=== PATIENT | male | born 1975 | race Caucasian/White ===

== ENCOUNTER 2020-12-20 08:56 | Emergency (ER) | payer OTHER, SELFPAY ==
[2020-12-20 09:07] VITALS: BP 123/77; PULSE 67; RESP 17; TEMP 36.6; O2SAT 98; BMI 28.3
[2020-12-20 09:50] LABS: Basophils % 0.6 % (0.1-2.0); Eosinophils # 0.2 K/mm3 (0.0-0.4); Eosinophils % 4.7 % (0.1-12.0); Hematocrit 45.3 % (42.0-52.0); Hemoglobin 14.9 g/dL (14.1-18.0); Lymphocytes # 1.4 K/mm3 (0.7-4.5); Lymphocytes % 28.8 % (10-50); Mean Corpuscular HGB Conc 32.9 g/dL (31.8-35.4); Mean Corpuscular Hemoglobin 32.4 pg (27.0-31.2); Mean Corpuscular Volume 98.5 fl (80-94); Monocytes # 0.4 K/mm3 (0.1-1.0); Monocytes % 7.9 % (1.7-9.3); Neutrophils # 2.8 K/mm3 (1.8-7.8); Neutrophils % 58.1 % (37.0-80.0); Platelet Count 231 K/mm3 (142-424); Red Cell Distribution Width 13.7 % (11.5-17.5); White Blood Count 4.8 K/mm3 (4.8-10.8)
[2020-12-20 09:52] LABS: Chloride 104 mmol/L (98-107); Potassium 4.1 mmoL/L (3.5-5.1); Sodium 141 mmol/L (136-145)
[2020-12-20 09:54] LABS: Blood Urea Nitrogen 12 mg/dl (9-20); Creatinine Clearance Estimated 144 mL/min (50-200); Estimated Glomerular Filt Rate 92 ml/min (>60); GFR (African American) 111 ML/MIN (>60)
[2020-12-20 09:55] LABS: Alanine Aminotransferase 30 U/L (12-78); Albumin Level 4.5 g/dl (3.5-5.0); Albumin/Globulin Ratio 1.4 (1.1-1.8); Alkaline Phosphatase 81 U/L (38-126); Anion Gap 14.1 mEq/L (5-15); Aspartate Amino Transferase 33 U/L (17-59); Bilirubin,Total 0.7 mg/dl (0.2-1.3); Calcium 9.1 mg/dl (8.4-10.2); Carbon Dioxide 27 mmol/L (22.0-30.0); Globulin 3.2 g/dL (1.3-3.2); Glucose 96 mg/dl (74-100); Total Protein,Serum 7.7 g/dl (6.3-8.2)
[2020-12-20 10:00] LABS: C-Reactive Protein 3.8 mg/L (0-4)
[2020-12-20 10:06] LABS: UTC Strep Screen (Rapid) Negative (Negative)
--- NOTE | 2020-12-20 10:18 | HMH.EDUTC ---
[facility] [place] Disposition Clinical Impression: Lymphadenopathy of left cervical region, Abscess of skin Disposition: Home, Self-Care Condition on Discharge: Good Instructions: Boil, DI for Lymphadenopathy Additional Instructions: Apply warm wet compresses to the affected sites three or four times per day for 15 minutes as tolerated. Take the antibiotics as directed. Follow up with your regular doctor. Don't shave your is well healed. GO TO THE ER FOR ANY WORSENING SYMPTOMS OR CONCERNS If you notice the swelling getting worse or if you have any feelings of difficulty breathing or start feeling like you need to cough a lot, please return to the ER. Prescriptions: Mupirocin [Bactroban 2% Ointment 22gm tube] 1 applicatio TP TID 7 Days #1 gm Transmission Status: Received by [id number] Doxycycline Monohydrate [Doxycycline Swain 100mg Tab] 100 mg PO Q12 10 Days #20 tab Transmission Status: Received by [id number] Referrals: Jesus Rivera MD [Primary Care Provider] - Time of Disposition: 11:09 Medical Decision Making - Medical Records Medical records reviewed: No: I reviewed the patient's medical records. - [place] Inquiry Pt receiving controlled substance: No Vital Signs: 12/20/20 09:07 12/20/20 11:15 Temperature 97.9 F 98 F Temperature Source Temporal Artery Scan Pulse Rate 65 Pulse Rate [Right Brachial] 67 Respiratory Rate 17 19 Blood Pressure 102/87 L Blood Pressure [Right Arm] 123/77 Blood Pressure Mean [Right Arm] 92 02 Sat by Pulse Oximetry 98 - Lab Data Lab results reviewed: Yes: I reviewed the patient's lab results. Lab Results 12/20/20 09:36: WBC 4.8, RBC 4.60, Hgb 14.9, Hct 45.3, MCV 98.5 H, MCH 32.4 H, MCHC 32.9, RDW 13.7, Plt Count 231, MPV 8.0, Neut % (Auto) 58.1, Lymph % (Auto) 28.8, Swain % (Auto) 7.9, Eos % (Auto) 4.7, Baso % (Auto) 0.6, Neut # (Auto) 2.8, Lymph # (Auto) 1.4, Swain # (Auto) 0.4, Eos # (Auto) 0.2, Baso # (Auto) 0.0, ESR 17 H 12/20/20 09:36: Sodium 141, Potassium 4.1, Chloride 104, Carbon Dioxide 27, Anion Gap 14.1, BUN 12, Creatinine 0.90, Estimated Creat Clear 144, Estimated GFR 92, Est GFR ( Amer) 111, Glucose 96, Calcium 9.1, Total Bilirubin 0.7, AST 33, ALT 30, Alkaline Phosphatase 81, C-Reactive Protein 3.8, Total Protein 7.7, Albumin 4.5, Globulin 3.2, Albumin/Globulin Ratio 1.4 12/20/20 09:36: Monoscreen Negative 12/20/20 09:53: Strep Scn Rapid Clinic Negative Result diagrams: 12/20/20 09:36 12/20/20 09:36 Orders (Tests/Meds): ORDERS Category Date Time Status Strep Screen Confirmation Routine Micro 12/20/20 09:53 Received Wound Culture and Gram Stain Stat Micro 12/20/20 11:00 Results [facility] [place] HPI - General Stated complaint: Knot on left side of neck Time Seen by Provider: 12/20/20 10:18 Mode of Arrival: Ambulatory Source of Information: Patient Limitations: No Limitations Description of Symptoms (Recalled from Triage Doc. by RN): Pt states after shaving last night he noticed this morning he now has a knot on the left sude of his neck with swelling and pain. HEENT Symptoms (Recalled from RN notes): No Resp Symptoms (Recalled from RN notes): No Skin Symptoms (Recalled from RN notes): Yes MS Symptoms (Recalled from RN notes): No Functional Status (Recalled from RN notes): na - History of Present Illness Provider Complaint: He states that he has had a swollen area on the left side of his neck since last night. He denies any additional swelling or history of having similar symptoms. He denies any fever/chills/malaise/body aches or other complaints. He denies any sore throat. He shaved yesterday before his current symptoms began. - Related Data Home Medications Medication Instructions Recorded Confirmed Ezetimibe/Rosuvastatin Calcium 1 each PO DAILY 12/20/20 12/20/20 [Rosuvastatin-Ezetimibe 5-10 mg] allopurinoL [Allopurinol 300mg 300 mg PO DAILY 12/20/20 12/20/20 tablet] Previous R
[2020-12-20 10:19] LABS: Erythrocyte Sedimentation Rate 17 mm/hr (0-15)
[2020-12-20 10:25] LABS: Monoscreen (Rapid) Negative (Negative)
[2020-12-20 11:15] VITALS: BP 102/87; PULSE 65; RESP 19; TEMP 36.6; O2SAT 99
== END 2020-12-20 11:16 | disposition home or self-care (01) ==
PROVIDERS: Emergency Provider Nurse Practitioner Family; PCP Family Medicine
DX: L02.91 Cutaneous abscess, unspecified; I10 Essential (primary) hypertension; E78.5 Hyperlipidemia, unspecified; Z88.0 Allergy status to penicillin
CPT/HCPCS: 80053; 85025; 85651; 86140; 86318; 87070; 87077; 87186; 87205; 87880; 99202; G0463

== ENCOUNTER → 2022-08-04 10:01 | Outpatient (CLI) | payer BC, SELFPAY ==
--- NOTE | 2022-08-04 10:10 | XR_ITS ---
FINAL REPORT CLINICAL HISTORY: Great toe pain left foot COMPARISON: None FINDINGS: Three views of the left foot show no evidence of acute displaced fracture or dislocation of the visualized bony architecture. The joint spaces appear normal. IMPRESSION: No acute bony abnormality. Reviewed, Interpreted and Dictated by Evangelina Goldberg MD Transcribed by Linette Garay Authenticated and . [facility]
== END ==
PROVIDERS: PCP Family Medicine; Visit Provider Podiatrist
DX: M79.672 Pain in left foot (principal)
CPT/HCPCS: 73630